=== PATIENT | male | born 1960 | race Caucasian/White ===

== ENCOUNTER 2018-03-07 21:37 | Emergency (ER) | payer OTHER ==
[~2018-03-07] VITALS: Ht 165.1 cm; Wt 63.5 kg
[~2018-03-07 21:37] MED LIST: CLINDAMYCIN HC300 MG PO; COL100 PO; LAC PO; LACTULOSE10 GM/152 PO; NOR10T PO; PROVENTIL0.09 MG/A1; PROVENTIL0.09 MG/A1 INH; XIFAXAN550 M1 PO
[2018-03-07 21:50] VITALS: Ht 165.1 cm; Wt 63.5 kg
[2018-03-08 02:06] VITALS: BP 128/87
== END 2018-03-08 02:06 | disposition home or self-care (01) ==
LOC: ED 21:37
DX: S00.83XA Contusion of other part of head, initial encounter (principal); S43.401A Unspecified sprain of right shoulder joint, initial encounter; J45.909 Unspecified asthma, uncomplicated; W01.0XXA Fall on same level from slipping, tripping and stumbling without subsequent striking against object, initial encounter; Y93.89 Activity, other specified; Y92.89 Other specified places as the place of occurrence of the external cause; Y99.8 Other external cause status

== ENCOUNTER 2019-03-30 12:34 | Emergency (ER) | payer OTHER ==
[~2019-03-30] VITALS: Ht 167.6 cm; Wt 62.1 kg
[~2019-03-30 12:34] MED LIST changes: +FOL1 PO; +LIDODERM51 TOP; +METHADONE HCL10 MG; +THI100 PO
[2019-03-30 12:38] VITALS: Ht 167.6 cm; Wt 62.1 kg
[2019-03-30 13:11] LABS: CALCIUM 8.8 mg/dL (8.5-10.1); CARBON DIOXIDE 22.7 mmol/L (21-32); CHLORIDE SERUM 104 mmol/L (98-107); CREATININE SERUM 0.6 mg/dL (0.7-1.3); GFR1 > 60 mL/min; GLUCOSE SERUM 95 mg/dL (74-106); POTASSIUM SERUM 4.2 mmol/L (3.5-5.1); SODIUM SERUM 138 mmol/L (136-145)
[2019-03-30 13:20] LABS: ALKALINE PHOSPHATASE 120 U/L (46-116); ALT/SGPT 154 U/L (16-63); AST/SGOT 216 U/L (15-37); BILIRUBIN TOTAL 0.6 mg/dL (0.20-1.00)
[2019-03-30 13:21] LABS: ALBUMIN 3.3 g/dL (3.4-5.0); TOTAL PROTEIN, SERUM 9.2 g/dL (6.4-8.2)
[2019-03-30 13:49] LABS: BASOPHIL % 0.8 % (0-2); PLATELET COUNT 52 x10^3mcL (130-400); RED CELL DISTRIBUTION WIDTH 13.2 % (11.5-14.5)
[2019-03-30 14:43] VITALS: BP 130/81
== END 2019-03-30 14:43 | disposition home or self-care (01) ==
LOC: ED 12:34
DX: R07.89 Other chest pain (principal); V89.2XXA Person injured in unspecified motor-vehicle accident, traffic, initial encounter; Y93.I9 Activity, other involving external motion; Y92.413 State road as the place of occurrence of the external cause; Y99.8 Other external cause status; J45.909 Unspecified asthma, uncomplicated; Z86.19 Personal history of other infectious and parasitic diseases
CPT/HCPCS: 36415